=== PATIENT | female | born 1940 | race Caucasian/White ===

== ENCOUNTER 2024-05-23 19:17 | Inpatient (IN) | payer MEDICARE ==
[~2024-05-23] VITALS: Ht 154.9 cm; Wt 59.0 kg
[2024-05-23] MEDS ORDERED: IOHEXOL 350 100 ML INFUS..BTL ONE (19:29)
[2024-05-23] MEDS ORDERED: SWABABLE VALVE TRANSFER SET EA MC ONE (19:29)
[2024-05-23] MEDS ORDERED: IV NORMAL SALINE 250 ML IV ONE (19:30)
[2024-05-23 19:55] LABS: BASOPHILS # (AUTO) 0.1 K/UL (0.0-0.2); BASOPHILS % (AUTO) 0.7 % (0.0-2.0); EOSINOPHILS # (AUTO) 0.3 K/uL (0.0-0.7); EOSINOPHILS % (AUTO) 2.3 % (0.0-7.0); HEMATOCRIT 37.2 % (31.2-41.9); HEMOGLOBIN 12.7 g/dL (10.9-14.3); LYMPHOCYTES # (AUTO) 6.1 K/uL (0.8-4.8); LYMPHOCYTES % (AUTO) 41.7 % (20.5-51.5); MEAN CORPUSCULAR HEMOGLOBIN 33.2 uug (24.7-32.8); MEAN CORPUSCULAR HGB CONC 34 g/dL (32.3-35.6); MEAN CORPUSCULAR VOLUME 97.1 fL (75.5-95.3); MONOCYTES # (AUTO) 1.2 K/uL (0.1-1.30); MONOCYTES % (AUTO) 8.1 % (0.0-11.0); NEUTROPHILS # (AUTO) 6.9 K/uL (1.8-8.9); NEUTROPHILS % (AUTO) 47.2 % (38.5-71.5); PLATELET COUNT (AUTO) 398 K/uL (179-408); RED BLOOD CELL COUNT(AUTO) 3.83 MIL/uL (3.63-4.92); WHITE BLOOD COUNT (AUTO) 14.7 K/uL (3.8-11.8)
[2024-05-23 19:56] LABS: DIFFERENTIAL COMMENT 1
[2024-05-23 20:02] LABS: CALCIUM 9.2 mg/dL (8.5-10.1); CARBON DIOXIDE 20 mmol/L (21-32); CHLORIDE 102 mmol/L (98-107); CREATININE 1.3 mg/dL (0.6-1.3); GLUCOSE 187 mg/dL (74-106); POTASSIUM 4.5 mmol/L (3.5-5.1); SODIUM SERUM 136 mmol/L (136-145); UREA NITROGEN, BLOOD 44 mg/dL (7-18)
[2024-05-23] MEDS ORDERED: BENZ-38 PO (20:15)
[2024-05-23] MEDS ORDERED: LEVO88TA5 PO (20:15)
[2024-05-23] MEDS ORDERED: TRAZ-182 PO (20:15)
[2024-05-23] MEDS ORDERED: FLUT1BLS6 IH (20:15)
[2024-05-23] MEDS ORDERED: ALBU8.5H8 INH (20:15)
[2024-05-23] MEDS ORDERED: MELA3CAP2 PO (20:15)
[2024-05-23] MEDS ORDERED: CLOPIDOGREL 75 MG TABLET ONE (20:25)
[2024-05-23] MEDS ORDERED: ASPIRIN 81 MG TAB.CHEW ONE (20:25)
[2024-05-23] MEDS: ASPIRIN 81 MG TAB.CHEW PO ONE (20:30)
[2024-05-23] MEDS: CLOPIDOGREL 75 MG TABLET PO ONE (20:31)
[2024-05-23] MEDS ORDERED: ATORVASTATIN 20 MG TABLET ONE (21:00)
[2024-05-23] MEDS: ATORVASTATIN 40 MG TABLET PO STA (21:00)
[2024-05-23 23:45] LABS: THYROID STIMULATING HORMONE 6.296 mIU/mL (0.358-3.740)
[2024-05-24] VITALS (22 sets, daily range): BP systolic 96–122; BP diastolic 41–107; TEMP 97.5–98.8; O2SAT 80–99
[2024-05-24 00:47] LABS: *BILIRUBIN,URIN NEGATIVE (NEGATIVE); *BLOOD, URINE NEGATIVE (NEGATIVE); *CLARITY,URINE CLEAR (CLEAR); *COLOR,URINE YELLOW (YELLOW); *KETONES,URINE NEGATIVE (NEGATIVE); *PROTEIN,URINE NEGATIVE (NEGATIVE); *UROBILINOGEN,URINE 0.2 E.U./dl (NORMAL); LEUKOCYTE ESTERASE ,URINE TRACE (NEGATIVE); NITRITE, URINE POSITIVE (NEGATIVE)
[2024-05-24 00:58] LABS: UGLUCOSE 3+ (NEGATIVE)
[2024-05-24 02:05] LABS: BACTERIA,URINE MODERATE /HPF (NONE SEEN); RBC,URINE 0-3 /HPF (0-3)
[2024-05-24 02:06] LABS: MUCUS,URINE FEW /LPF (0-FEW); SQUAMOUS EPITHELIAL CELL,UR FEW /HPF (NONE SEEN)
[2024-05-24] MEDS: HEPARIN SODIUM,PORCINE 5,000 UNITS/ML VIAL IVP ONE (03:58)
[2024-05-24] MEDS: HEPARIN/D5W DRIP 500 ML IV PRN (04:05)
[2024-05-24] MEDS: PANTOPRAZOLE SODIUM 40 MG TABLET.DR PO SCH (06:05)
[2024-05-24] MEDS: ASPIRIN 325 MG TABLET PO SCH (08:52)
[2024-05-24] MEDS: CLOPIDOGREL 75 MG TABLET PO SCH (08:53)
[2024-05-24] MEDS ORDERED: FLUTICASONE/VILANTEROL 1 EACH BLST.W.DEV INH SCH (14:30)
[2024-05-24] MEDS ORDERED: ALBUTEROL SULFATE 8 GM HFA.AER.AD INH PRN (14:30)
[2024-05-24] MEDS ORDERED: DAPA10TA PO (14:33)
[2024-05-24] MEDS ORDERED: SPIR25TA6 PO (14:44)
[2024-05-24] MEDS ORDERED: METO-358 PO (14:45)
[2024-05-24] MEDS ORDERED: MORPHINE SULFATE 2 MG/1 ML DISP.SYRIN IM PRN (15:15)
[2024-05-24] MEDS ORDERED: LORAZEPAM 0.5 MG TABLET PO PRN (15:15)
[2024-05-24] MEDS: [UNRECOGNIZED DRUG - OTHER] INH SCH (15:30)
[2024-05-24] MEDS: MORPHINE SULFATE 2 MG/1 ML DISP.SYRIN IV PRN (19:57)
[2024-05-24] MEDS: BENZONATATE 100 MG CAPSULE PO PRN (20:46)
[2024-05-24] MEDS: SIMVASTATIN 40 MG TABLET PO SCH (20:46)
[2024-05-24] MEDS: MELATONIN 3 MG TABLET PO SCH (20:46)
[2024-05-24] MEDS: ALBUTEROL SULFATE 2.5 MG/3 ML NEBU NEB PRN (21:51)
[2024-05-25] VITALS (8 sets, daily range): BP systolic 101–139; BP diastolic 42–60; TEMP 97.7–98.1; O2SAT 94–99
[2024-05-25] MEDS: LEVOTHYROXINE SODIUM 88 MCG TABLET PO SCH (06:09)
[2024-05-25 07:47] LABS: BASOPHILS # (AUTO) 0.1 K/UL (0.0-0.2); BASOPHILS % (AUTO) 0.6 % (0.0-2.0); EOSINOPHILS # (AUTO) 0.3 K/uL (0.0-0.7); HEMATOCRIT 38.6 % (31.2-41.9); HEMOGLOBIN 13.6 g/dL (10.9-14.3); LYMPHOCYTES # (AUTO) 3.7 K/uL (0.8-4.8); LYMPHOCYTES % (AUTO) 25.5 % (20.5-51.5); MEAN CORPUSCULAR HEMOGLOBIN 34.2 uug (24.7-32.8); MEAN CORPUSCULAR HGB CONC 35 g/dL (32.3-35.6); MEAN CORPUSCULAR VOLUME 97.1 fL (75.5-95.3); MONOCYTES # (AUTO) 1.1 K/uL (0.1-1.30); MONOCYTES % (AUTO) 7.7 % (0.0-11.0); NEUTROPHILS # (AUTO) 9.3 K/uL (1.8-8.9); NEUTROPHILS % (AUTO) 64.2 % (38.5-71.5); PLATELET COUNT (AUTO) 479 K/uL (179-408); RED BLOOD CELL COUNT(AUTO) 3.98 MIL/uL (3.63-4.92); RED CELL DISTRIBUTION WIDTH 14.9 % (12.3-17.7); WHITE BLOOD COUNT (AUTO) 14.5 K/uL (3.8-11.8)
[2024-05-25 07:57] LABS: DIFFERENTIAL COMMENT 1
[2024-05-25 08:31] LABS: ALANINE AMINOTRANSFERASE 65 U/L (14-59); ALBUMIN 3.1 g/dL (3.4-5.0); ALKALINE PHOSPHATASE 239 U/L (50-136); ASPARTATE AMINOTRANSFERASE 76 U/L (15-37); BILIRUBIN,TOTAL 0.5 mg/dL (0.2-1.0); CALCIUM 9.4 mg/dL (8.5-10.1); CARBON DIOXIDE 25 mmol/L (21-32); CHLORIDE 105 mmol/L (98-107); CREATINE KINASE, TOTAL 1302 U/L (26-192); CREATININE 1.1 mg/dL (0.6-1.3); GLUCOSE 102 mg/dL (74-106); MAGNESIUM 2.4 mg/dL (1.8-2.4); PHOSPHOROUS 3.9 mg/dL (2.5-4.9); POTASSIUM 4.1 mmol/L (3.5-5.1); SODIUM SERUM 140 mmol/L (136-145); TOTAL PROTEIN, SERUM 7.6 g/dL (6.4-8.2); UREA NITROGEN, BLOOD 33 mg/dL (7-18)
[2024-05-25] MEDS: ASPIRIN EC 81 MG TABLET.DR PO SCH (08:52)
[2024-05-25 09:32] LABS: THYROID STIMULATING HORMONE 10.697 mIU/mL (0.358-3.740)
[2024-05-25] MEDS ORDERED: DAPAGLIFLOZIN PROPANEDIOL 10 MG TABLET PO SCH (12:30)
[2024-05-25] MEDS: DAPAGLIFLOZIN PROPANEDIOL 5 MG TABLET PO SCH (12:43)
[2024-05-25 12:59] LABS: *BILIRUBIN,URIN NEGATIVE (NEGATIVE); *BLOOD, URINE NEGATIVE (NEGATIVE); *CLARITY,URINE CLOUDY (CLEAR); *COLOR,URINE YELLOW (YELLOW); *KETONES,URINE NEGATIVE (NEGATIVE); *PROTEIN,URINE NEGATIVE (NEGATIVE); *UROBILINOGEN,URINE 0.2 E.U./dl (NORMAL); LEUKOCYTE ESTERASE ,URINE 2+ (NEGATIVE); NITRITE, URINE NEGATIVE (NEGATIVE); PH,URINE 5.5 (5.0-8.0); UGLUCOSE 2+ (NEGATIVE)
[2024-05-25 13:04] LABS: BACTERIA,URINE MANY /HPF (NONE SEEN); SQUAMOUS EPITHELIAL CELL,UR MODERATE /HPF (NONE SEEN); URINE AMORPHOUS URATE MODERATE /HPF; WBC,URINE 20-50 /HPF (0-3)
[2024-05-25 15:14] LABS: CHOLESTEROL 185 mg/dL (<200); TRIGLYCERIDES 57 MG/DL (30-150)
[2024-05-25 15:15] LABS: HDL CHOLESTEROL 62 mg/dL (40-60)
[2024-05-25 15:29] LABS: *CREATININE,URINE 50.6 mg/dL (30-125); *URINE TOTAL PROTEIN RANDOM 30.1 mg/dL (<150/24HR)
[2024-05-25] MEDS: CEFTRIAXONE 1 G in IV DEXTROSE 5% 50 ML IV SCH (17:47)
[2024-05-25 21:24] LABS: IRON, SERUM 47 ug/dL (50-175)
[2024-05-25] MEDS: TRAZODONE 50 MG TABLET PO PRN (23:17)
[2024-05-26] VITALS (9 sets, daily range): BP systolic 103–133; BP diastolic 48–54; TEMP 97.7–98; O2SAT 94–100
[2024-05-26] MEDS: APIXABAN 2.5 MG TABLET PO SCH (08:59)
[2024-05-26] MEDS ORDERED: ASPIRIN EC 81 MG TABLET.DR PO SCH (09:00)
[2024-05-26 09:06] LABS: PTH, INTACT 24 pg/mL (15-65)
[2024-05-26] MEDS ORDERED: ENSURE WITH FIBER 237 ML LIQUID (CHOCOLATE) PO SCH (11:00)
[2024-05-26] MEDS: ENSURE WITH FIBER 237 ML LIQUID (CHOCOLATE) PO SCH (13:29)
[2024-05-26] MEDS ORDERED: TRAZ-252 PO (19:14)
[2024-05-26] MEDS ORDERED: ALBU2.5V7 NEB (19:14)
[2024-05-26] MEDS ORDERED: LORA0.5T48 PO (19:14)
[2024-05-26] MEDS ORDERED: MELA3TAB41 PO (19:14)
[2024-05-26] MEDS ORDERED: LEVO100T10 PO (19:14)
[2024-05-26] MEDS ORDERED: APIX2.5T PO (19:14)
[2024-05-26] MEDS ORDERED: METO-356 PO (19:14)
[2024-05-26] MEDS ORDERED: PANT40TA49 PO (19:14)
[2024-05-26] MEDS ORDERED: BENZ-38 PO (19:14)
[2024-05-26] MEDS ORDERED: CEFT1PIG2 IV (19:14)
[2024-05-26] MEDS ORDERED: Lactose-Free Food/Fiber PO (19:14)
[2024-05-27 06:06] LABS: A/G RATIO 0.8 (0.7-1.7); ALBUMIN 3.2 g/dL (2.9-4.4); ALPHA-1-GLOBULIN 0.4 g/dL (0.0-0.4); ALPHA-2-GLOBULIN 0.7 g/dL (0.4-1.0); GAMMA GLOBULIN 1.8 g/dL (0.4-1.8); GLOBULIN, TOTAL 3.8 g/dL (2.2-3.9); M-SPIKE 0.5 g/dL (Not Observed)
[2024-05-27] MEDS ORDERED: LEVOTHYROXINE SODIUM 100 MCG TABLET PO SCH (07:00)
== END 2024-05-26 22:00 | DRG 64 ==
LOC: ER 19:17 → TELE3 22:00 → CCU 22:03 → TELE3 05-24 16:27
PROVIDERS: ADMIT Nurse Practitioner Acute Care; ATTEND Student in an Organized Health Care Education/Training Program
PROC: 05HB33Z Insertion of Infusion Device into Right Basilic Vein, Percutaneous Approach (ICD-10-PCS; principal; 2024-05-24)
DX: I63.9 Cerebral infarction, unspecified (principal); I21.A1 Myocardial infarction type 2; I50.23 Acute on chronic systolic (congestive) heart failure; N17.0 Acute kidney failure with tubular necrosis; G45.9 Transient cerebral ischemic attack, unspecified; N39.0 Urinary tract infection, site not specified; I42.8 Other cardiomyopathies; I48.20 Chronic atrial fibrillation, unspecified; T82.53 Leakage of other cardiac and vascular devices and implants; J44.0 Chronic obstructive pulmonary disease with (acute) lower respiratory infection; M62.82 Rhabdomyolysis; E44.0 Moderate protein-calorie malnutrition; G83.11 Monoplegia of lower limb affecting right dominant side; H53.8 Other visual disturbances; R29.702 NIHSS score 2; Y71.1 Therapeutic (nonsurgical) and rehabilitative cardiovascular devices associated with adverse incidents; Y92.89 Other specified places as the place of occurrence of the external cause; J20.9 Acute bronchitis, unspecified; J06.9 Acute upper respiratory infection, unspecified; E03.9 Hypothyroidism, unspecified; I67.1 Cerebral aneurysm, nonruptured; I11.0 Hypertensive heart disease with heart failure; E78.5 Hyperlipidemia, unspecified; Z79.82 Long term (current) use of aspirin; I69.998 Other sequelae following unspecified cerebrovascular disease; H91.93 Unspecified hearing loss, bilateral; Z87.442 Personal history of urinary calculi; Z79.899 Other long term (current) drug therapy; Z95.818 Presence of other cardiac implants and grafts; Z79.890 Hormone replacement therapy; Z95.810 Presence of automatic (implantable) cardiac defibrillator; Z85.3 Personal history of malignant neoplasm of breast; Z90.12 Acquired absence of left breast and nipple; R73.03 Prediabetes; R74.01 Elevation of levels of liver transaminase levels; E88.09 Other disorders of plasma-protein metabolism, not elsewhere classified; F41.9 Anxiety disorder, unspecified; Z86.73 Personal history of transient ischemic attack (TIA), and cerebral infarction without residual deficits; Z79.02 Long term (current) use of antithrombotics/antiplatelets; I25.2 Old myocardial infarction
CPT/HCPCS: 36415; 70450; 70496; 71045; 76770; 83550; 83735; 83970; 84100; 84155; 84165; 84300; 84443; 84484; 85025; 85730; 93307; 94640; 94760; A4606; A4663; G0378; J0696; J1644; J2270; Q9967

== ENCOUNTER 2024-05-26 23:04 | Inpatient (IN) | payer MEDICARE ==
[~2024-05-26] VITALS: Ht 154.9 cm; Wt 59.0 kg
[~2024-05-26 23:04] MED LIST: ALBU2.5V7 NEB; ALBU8.5H8 INH; APIX2.5T PO; BENZ-38 PO; CEFT1PIG2 IV; DAPA10TA PO; FLUT1BLS6 IH; LEVO100T10 PO; LEVO88TA5 PO; LORA0.5T48 PO; Lactose-Free Food/Fiber PO; MELA3CAP2 PO; MELA3TAB41 PO; METO-356 PO; METO-358 PO; PANT40TA49 PO; SPIR25TA6 PO; TRAZ-182 PO; TRAZ-252 PO
[2024-05-26] MEDS: TRAZODONE 50 MG TABLET PO SCH (23:48)
[2024-05-27] VITALS (7 sets, daily range): BP systolic 122–125; BP diastolic 41–43; TEMP 97.2–97.6; O2SAT 94–99
[2024-05-27] MEDS ORDERED: BENZONATATE 100 MG CAPSULE PO PRN (06:15)
[2024-05-27] MEDS ORDERED: LEVOTHYROXINE SODIUM 100 MCG TABLET PO SCH (07:00)
[2024-05-27] MEDS: PANTOPRAZOLE SODIUM 40 MG TABLET.DR PO SCH (07:12)
[2024-05-27] MEDS: LEVOTHYROXINE SODIUM 100 MCG TABLET PO SCH (07:12)
[2024-05-27] MEDS ORDERED: Medication Not On Formulary EA ([Lactose-Free Food/Fiber] 237 ML) PO SCH (08:00)
[2024-05-27 08:37] LABS: BASOPHILS # (AUTO) 0.1 K/UL (0.0-0.2); BASOPHILS % (AUTO) 0.6 % (0.0-2.0); EOSINOPHILS # (AUTO) 0.5 K/uL (0.0-0.7); EOSINOPHILS % (AUTO) 3.3 % (0.0-7.0); HEMATOCRIT 37.1 % (31.2-41.9); HEMOGLOBIN 13.3 g/dL (10.9-14.3); LYMPHOCYTES # (AUTO) 2.7 K/uL (0.8-4.8); MEAN CORPUSCULAR HEMOGLOBIN 34.7 uug (24.7-32.8); MEAN CORPUSCULAR HGB CONC 36 g/dL (32.3-35.6); MEAN CORPUSCULAR VOLUME 96.6 fL (75.5-95.3); MONOCYTES # (AUTO) 1.1 K/uL (0.1-1.30); MONOCYTES % (AUTO) 7.4 % (0.0-11.0); NEUTROPHILS # (AUTO) 9.9 K/uL (1.8-8.9); NEUTROPHILS % (AUTO) 69.7 % (38.5-71.5); PLATELET COUNT (AUTO) 497 K/uL (179-408); RED BLOOD CELL COUNT(AUTO) 3.84 MIL/uL (3.63-4.92); WHITE BLOOD COUNT (AUTO) 14.2 K/uL (3.8-11.8)
[2024-05-27 08:40] LABS: DIFFERENTIAL COMMENT 1
[2024-05-27 08:58] LABS: ALANINE AMINOTRANSFERASE 65 U/L (14-59); ALBUMIN 3.1 g/dL (3.4-5.0); ALKALINE PHOSPHATASE 246 U/L (50-136); ASPARTATE AMINOTRANSFERASE 60 U/L (15-37); BILIRUBIN,TOTAL 0.5 mg/dL (0.2-1.0); CARBON DIOXIDE 22 mmol/L (21-32); CHLORIDE 108 mmol/L (98-107); CREATININE 1.3 mg/dL (0.6-1.3); GLUCOSE 173 mg/dL (74-106); POTASSIUM 4.2 mmol/L (3.5-5.1); SODIUM SERUM 143 mmol/L (136-145); TOTAL PROTEIN, SERUM 7.8 g/dL (6.4-8.2); UREA NITROGEN, BLOOD 36 mg/dL (7-18)
[2024-05-27] MEDS ORDERED: DAPAGLIFLOZIN PROPANEDIOL 10 MG TABLET PO SCH (09:00)
[2024-05-27] MEDS: SPIRONOLACTONE 25 MG TABLET PO SCH (09:20)
[2024-05-27] MEDS: METOPROLOL SUCCINATE XL 25 MG TAB.SR.24H PO SCH (09:21)
[2024-05-27] MEDS: APIXABAN 2.5 MG TABLET PO SCH (09:23)
[2024-05-27] MEDS: DAPAGLIFLOZIN PROPANEDIOL 5 MG TABLET PO SCH (09:23)
[2024-05-27] MEDS: REMEDY ESSENTIAL ZINC PASTE 113 GM TOP SCH (09:25)
[2024-05-27] MEDS: ENSURE WITH FIBER 237 ML LIQUID (CHOCOLATE) PO SCH (09:26)
[2024-05-27] MEDS: ALBUTEROL SULFATE 2.5 MG/3 ML NEBU NEB PRN (13:58)
[2024-05-27] MEDS: LORAZEPAM 0.5 MG TABLET PO PRN (20:59)
[2024-05-27] MEDS: MELATONIN 3 MG TABLET PO SCH (20:59)
[2024-05-28] VITALS (8 sets, daily range): BP systolic 107–137; BP diastolic 48–56; TEMP 97.6–98.8; O2SAT 93–99
[2024-05-28] MEDS: [UNRECOGNIZED DRUG - OTHER] INH SCH (08:26)
[2024-05-29] VITALS (10 sets, daily range): BP systolic 119–142; BP diastolic 53–80; TEMP 97.5–98.1; O2SAT 92–99
[2024-05-29] MEDS: TRAZODONE 50 MG TABLET PO PRN (21:57)
[2024-05-30] VITALS (8 sets, daily range): BP systolic 100–113; BP diastolic 47–63; TEMP 97.3–97.8; O2SAT 94–99
[2024-05-30] MEDS: ALPRAZOLAM 0.5 MG TABLET PO PRN (08:31)
[2024-05-30] MEDS ORDERED: TRAMADOL HCL 50 MG TABLET PO PRN (17:00)
[2024-05-31 06:46] VITALS: BP 98/77; TEMP 97.5; O2SAT 97
[2024-05-31 07:12] VITALS: O2SAT 97
[2024-05-31 07:21] VITALS: O2SAT 99
[2024-05-31 08:32] VITALS: BP 96/55
[2024-05-31 13:39] VITALS: O2SAT 95
[2024-05-31 13:44] VITALS: O2SAT 99
== END 2024-05-31 14:06 | disposition home health service (06) | DRG 69 ==
PROVIDERS: ADMIT Physical Medicine & Rehabilitation Pain Medicine; ATTEND Physical Medicine & Rehabilitation Pain Medicine
DX: G45.9 Transient cerebral ischemic attack, unspecified (principal); I21.A1 Myocardial infarction type 2; I42.8 Other cardiomyopathies; I50.22 Chronic systolic (congestive) heart failure; I48.20 Chronic atrial fibrillation, unspecified; N17.9 Acute kidney failure, unspecified; N39.0 Urinary tract infection, site not specified; E44.0 Moderate protein-calorie malnutrition; J44.0 Chronic obstructive pulmonary disease with (acute) lower respiratory infection; M62.82 Rhabdomyolysis; E03.9 Hypothyroidism, unspecified; I11.0 Hypertensive heart disease with heart failure; J44.9 Chronic obstructive pulmonary disease, unspecified; M54.16 Radiculopathy, lumbar region; Z95.818 Presence of other cardiac implants and grafts; Z66 Do not resuscitate; H53.2 Diplopia; I69.898 Other sequelae of other cerebrovascular disease; Z86.73 Personal history of transient ischemic attack (TIA), and cerebral infarction without residual deficits; J20.9 Acute bronchitis, unspecified; B96.20 Unspecified Escherichia coli [E. coli] as the cause of diseases classified elsewhere; E78.5 Hyperlipidemia, unspecified; E88.09 Other disorders of plasma-protein metabolism, not elsewhere classified; F41.9 Anxiety disorder, unspecified; I07.1 Rheumatic tricuspid insufficiency; R73.03 Prediabetes; Z85.3 Personal history of malignant neoplasm of breast; Z87.891 Personal history of nicotine dependence; Z90.12 Acquired absence of left breast and nipple; Z95.810 Presence of automatic (implantable) cardiac defibrillator; M19.90 Unspecified osteoarthritis, unspecified site; R26.81 Unsteadiness on feet; R74.01 Elevation of levels of liver transaminase levels
CPT/HCPCS: 36415; 85025; 94640; 94760